=== PATIENT | female | born 1965 | race Two or more races ===

== ENCOUNTER 2018-12-05 07:09 | Outpatient (CLI) | payer OTHER ==
[2018-12-05 07:47] LABS: CHOL/HDL RATIO 4.2; LDL/HDL RATIO 2.5 (0.5-3.0)
[2018-12-05 08:09] LABS: HEMOGLOBIN A1C 5.8 % (4.2-6.3)
== END 2018-12-05 23:59 | disposition home or self-care (01) ==
LOC: LAB 07:09
PROVIDERS: ATTEND Family Medicine
DX: Z13.1 Encounter for screening for diabetes mellitus (principal); Z13.220 Encounter for screening for lipoid disorders
CPT/HCPCS: 36415; 80061; 83036